=== PATIENT | male | born 1995 | race Caucasian/White ===

== ENCOUNTER 2016-05-08 20:14 | Emergency (ER) | payer OTHER ==
[~2016-05-08] VITALS: Ht 182.9 cm; Wt 85.5 kg
[2016-05-08 20:39] VITALS: Ht 182.9 cm; Wt 85.5 kg
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
[2016-05-08] MEDS ORDERED: IBUP-1542 PO (22:06)
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
== END 2016-05-08 22:49 | disposition home or self-care (01) ==
LOC: FTE 20:14
DX: S40.212A Abrasion of left shoulder, initial encounter (principal); S80.211A Abrasion, right knee, initial encounter; S39.92XA Unspecified injury of lower back, initial encounter; V49.40XA Driver injured in collision with unspecified motor vehicles in traffic accident, initial encounter
CPT/HCPCS: 72072; 72100; 73030; 73562; Z7502